=== PATIENT | female | born 1960 | race Two or more races ===

== ENCOUNTER → 2017-01-25 | Outpatient (CLI) | payer OTHER ==
--- NOTE | ~2017-01-25 | CR63 ---
[facility] A Service of [facility] RADIOLOGY TEXT RESULTS PATIENT: MICHAEL DAMIAN LOCATION: [facility] : 64 UNIT #: [id number] AGE: [address]: LIZZY RODRIGUEZ APRN SEX: F ORDER DR: [id number] [facility] [address] [place], [place] [address] [id number] O MR#: [id number] #: [id number] NAME: MICHAEL DAMIAN : 1960 SEX: F STUDY DATE/TIME: 01/25/2017 12:41 UNIT: [facility] ROOM: STUDY DESCRIPTION: CR Chest 2 View Attending Physician: James Rodriguez Aprn Referring Physician: James Rodriguez Aprn Ordering Physician: James Rodriguez Aprn Primary Care Physician: Jose Roberto Joseph M.D. MEDICAL IMAGING REPORT This report is preliminary unless electronic signature is present EXAM Chest 2 views, 01/25/2017 1241 hours HISTORY 56-year-old woman with complaint of cough and congestion for 2 months. COMPARISON None FINDINGS Upright PA and lateral views of the chest demonstrate normal cardiac, mediastinal and hilar contours. The lungs are well expanded and clear. There is no effusion or bone lesion. IMPRESSION Normal two-view chest exam. Dictated by... Hawa Hurtado M.D. THIS IS AN ELECTRONICALLY VERIFIED REPORT Hawa Hurtado M.D. at 01/27/2017 6:59 PM Lali TD: 01/25/2017 16:02 JOB #: [id number] MEDICAL IMAGING REPORT Page 1 of 1 COPY
== END | disposition home or self-care (01) ==
LOC: CRAD 12:30
DX: R05 Cough (principal); R06.02 Shortness of breath
CPT/HCPCS: 71020